=== PATIENT | female | born 1995 | race Caucasian/White ===

== ENCOUNTER 2017-11-17 18:52 | Emergency (ER) | payer MEDICAID, OTHER ==
[~2017-11-17] VITALS: Ht 162.6 cm; Wt 82.0 kg
[2017-11-17] MEDS ORDERED: ACETAMINOPHEN 325MG TABLET PO STA (21:02)
[2017-11-17] MEDS ORDERED: SODIUM CHLORIDE 0.9% 1000ML BAG (SEPSIS BOLUS) IV ONE (21:15)
[2017-11-17 21:40] LABS: BASOPHILS % 0.6 % (0.0-2.0); EOSINOPHILS % 0.4 % (0.0-5.0); HEMATOCRIT. 41.7 % (36.0-48.0); HEMOGLOBIN. 14.3 g/dL (12.0-16.0); LYMPHOCYTES % 20.5 % (20.0-50.0); MEAN CORPUSCULAR HEMOGLOBIN 28.9 pg (28.0-32.0); MEAN CORPUSCULAR VOLUME 84.4 fL (81.0-99.0); MEAN PLATELET VOLUME 8.9 fl (7.4-10.4); MONOCYTES % 4.5 % (2.0-8.0); PLATELET 234 x1000/uL (130-400); RED BLOOD CELL COUNT 4.94 mill/uL (4.2-5.4); RED CELL DISTRIBUTION WIDTH 13.5 % (11.6-14.6)
[2017-11-17 21:45] LABS: CHLORIDE 106 mEq/L (98-107)
[2017-11-17 21:46] LABS: PROTHROMBIN TIME 10.8 sec (9.4-11.6)
[2017-11-17 21:58] LABS: HCG SCREEN NEGATIVE
[2017-11-17] MEDS ORDERED: IOHEXOL-300 100 ML BOTTLE ONE (22:05)
[2017-11-17 23:47] VITALS: BP 104/76
== END 2017-11-18 00:25 | disposition home or self-care (01) ==
LOC: ER 18:52
DX: L90.5 Scar conditions and fibrosis of skin (principal); L53.9 Erythematous condition, unspecified; R00.0 Tachycardia, unspecified; R50.9 Fever, unspecified; Z98.890 Other specified postprocedural states; Z90.49 Acquired absence of other specified parts of digestive tract
CPT/HCPCS: 36415; 74177; 80053; 83605; 84703; 85025; 85610; 87040; 99285; J7030; J7040; Q9967; Z7610

== ENCOUNTER 2018-08-29 10:05 | Emergency (ER) | payer OTHER ==
[~2018-08-29] VITALS: Ht 165.1 cm; Wt 83.0 kg
[2018-08-29] MEDS ORDERED: IBUPROFEN 600MG TABLET PO ONE (11:15)
[2018-08-29] MEDS ORDERED: IBUPROFEN 600MG TABLET ONE (11:48)
[2018-08-29 12:11] VITALS: BP 122/74
== END 2018-08-29 12:12 | disposition home or self-care (01) ==
LOC: ER 10:05
DX: M25.561 Pain in right knee (principal); W51.XXXA Accidental striking against or bumped into by another person, initial encounter; Y93.89 Activity, other specified; Y92.89 Other specified places as the place of occurrence of the external cause
CPT/HCPCS: 73562; 81025; 99283; L1830